=== PATIENT | female | born 1960 | race African-American/Black ===

== ENCOUNTER 2019-02-21 22:16 | Emergency (ER) | payer BC ==
[~2019-02-21 22:16] MED LIST: LIDOCAINE PATCH REMOVAL MC SCH
[2019-02-21 22:26] VITALS: TEMP 97.7; BMI 27.9
--- NOTE | 2019-02-21 22:51 | PDOC ---
History of Present Illness - General Chief Complaint: Pain, Acute Stated Complaint: RT SIDE PAIN Time Seen by Provider: 02/21/19 22:51 History Source: Patient Exam Limitations: No Limitations - History of Present Illness Initial Comments: 02/21/19 23:12 58 year old female with PMH HTN, HLD, DM presented to ED for right low back pain and right hip pain since Monday. Pt denied fall/trauma. Pt reported th pain is constnat, sharp, aggravated by movement, alleviated by rest, aggravated by laying on her right side and bending forward. Pt denied nausea, vomiting, diarrhea, abdominal pain, chest pain, shortness of breath, fever, chills, numbness, weakness. Pt denied AC use. Pt reported she was seen by her chiropractor today, but that worsened her symptoms. She stated she has been taking a muscle relaxer, ibuprofen 800 mg without relief of pain. Pt reported she had an IM anti-inflammatory shot yesterday from her pain management doctor. Past History - Past Medical History Allergies/Adverse Reactions: Allergies Allergy/AdvReac Type Severity Reaction Status Date / Time No Known Drug Allergies Allergy Verified 02/21/19 22:24 seasonal Allergy Mild Uncoded 02/21/19 22:24 Home Medications: Ambulatory Orders Valsartan/Hydrochlorothiazide [Valsartan-Hctz 320-25 mg Tab] 1 each PO DAILY Lidocaine 5% Patch [Lidoderm Patch -] 1 patch TP DAILY PRN #7 patch 02/22/19 Anemia: No Asthma: Yes Cancer: No Cardiac Disorders: No CVA: No COPD: No CHF: No Dementia: No Diabetes: No GI Disorders: No Disorders: No HTN: Yes Hypercholesterolemia: No Liver Disease: No Seizures: No Thyroid Disease: No - Surgical History Abdominal Surgery: Yes ([id number]) Appendectomy: Yes (AGE 17YRS) Cardiac Surgery: No Cholecystectomy: No GI Surgery: Yes (lap band, gastric sleeve) Lung Surgery: No Neurologic Surgery: No Orthopedic Surgery: Yes (LT KNEE ARTHROSCOPY 2008) - Immunization History Td Vaccination: Yes Immunization Up to Date: Yes - Suicide/Smoking/Psychosocial Hx Smoking History: Never smoked Have you smoked in the past 12 months: No Number of Cigarettes Smoked Daily: 2 'Breaking Loose' booklet given: 09/08/13 Hx Alcohol Use: No Drug/Substance Use Hx: No Substance Use Type: None Hx Substance Use Treatment: No Review of Systems - Review of Systems Able to Perform ROS?: Yes Comments:: 02/21/19 23:09 General: denied fever, chills, generalized weakness. HEENT: denied sore throat, rhinorrhea, ear pain. Heart: denied chest pain, palpitations, syncope, diaphoresis. Respiratory: denied shortness of breath, cough, sputum production, hemoptysis. Abdomen: denied abdominal pain, nausea, vomiting, diarrhea, constipation, blood in stool. : denied dysuria, increased urinary frequency, hematuria, urinary incontinence , flank pain. Back: admitted to back pain. Musculoskeletal: admitted to right hip pain. Neurological: denied headache, dizziness, numbness, tingling, weakness. Skin: denied rash, laceration, abrasion. *Physical Exam - Vital Signs Last Vital Signs Temp Pulse Resp BP Pulse Ox 97.7 F 65 20 112/76 100 02/21/19 22:24 02/21/19 22:24 02/21/19 22:24 02/21/19 22:24 02/21/19 22:24 - Physical Exam Comments: 02/21/19 23:09 Constitutional: Well-nourished, Well-developed, appearing stated age. HEENT: head is normocephalic, atraumatic. EOMI. PERRLA. Neck: supple. Full ROM. Heart: regular rhythm. no murmurs, rubs or gallops. Lungs: clear to auscultation bilaterally. no crackles, rhonchi or wheezing. no stridor. Back: no midline C/T/L spine tenderness to palpation. Hips: LE equal in length, no external rotation. mild tenderness to palpation of right hip. Abdomen: soft, nontender. normal bowel sounds. no rebound, guarding, masses. Extremities: peripheral pulses intact. no lower extremity edema. Neurological: CN 2-12 grossly intact. moves all four extremities. sensation intact and equal bilateral lower extremities. Psych: awake, alert, oriented x3. follows commands. answers questions appropriately. Skin: no rash to right hip/leg. Medical Decision Making - Medical Decision Making 02/21/19 23:10 58 year old female with above PMH presented to ED for right low back and right hip pain since Monday. Initial Vital Signs Temp Pulse Resp BP Pulse Ox 97.7 F 65 20 112/76 100 02/21/19 22:24 02/21/19 22:24 02/21/19 22:24 02/21/19 22:24 02/21/19 22:24 Afebrile. No tachycardia. No tachypnea. No hypoxia on room air. No hypertension. Labs ordered: none Imaging ordered: pelvis and right hip XR Medications ordered: robaxin 1500 mg PO once, toradol 60 mg IM once, lidoderm patch 02/22/19 01:12 Pelvis and right hip, lumbar spine XR my and Dr. De La Rosa's read: no acute fracture/dislocation. -Pending official report 02/22/19 01:47 Pt reported improvement of pain but would like to have oral pain medicine so she can get through the night. Medications ordered: Oxycodone 5 mg PO once Pt ambulated with cane unassisted. Pt discharged. discharge medications: Lidoderm patch x7 02/23/19 12:29 Follow up: Official hip/pelvis XR report: EXAM#: TYPE/EXAM: RESULT: [id number] RAD/HIP PELVIS-RIGHT Right hip and pelvis: Pain. An AP view of the pelvis and 2 views of the right hip revealed no sign of fracture or subluxation and no sign of blastic or lytic changes. The hips appear symmetrical. The SI joints are patent. There are left pelvic clips and arthritic spine changes. There is a nonspecific bowel pattern. If symptoms persist, further imaging and orthopedic consultation may be of help. Impression: No acute pelvis or right hip pathology. Reported By: Bryan Luz MD 02/22/19 0721 Official lumbar spine XR report: EXAM#: TYPE/EXAM: RESULT: [id number] RAD/SPINE- LUMBAR ONLY Lumbar spine: Low back pain. 3 views lumbar spine to been submitted. The AP view shows arthritic changes, patent SI joints and left pelvic clips. The paraspinal soft tissues are unremarkable. Lateral and spot lateral views show normal lordosis with slight forward subluxation of L3 on L4 by several millimeters. There is narrowing of the L4-5 and L5-S1 intervertebral disc spaces. Blastic or lytic changes are not seen. There is no sign of fracture but there is some vertebral wedging. There are aortic and iliac vascular calcifications with retained stool. If symptoms persist, further imaging and orthopedic consultation may be of help. Reported By: Bryan Luz MD 02/22/19 0723 *DC/Admit/Observation/Transfer Diagnosis at time of Disposition: Hip pain - Discharge Dispostion Disposition: HOME Condition at time of disposition: Improved Decision to Admit order: No - Prescriptions Prescriptions: Lidocaine 5% Patch [Lidoderm Patch -] 1 patch TP DAILY PRN #7 patch PRN Reason: Pain - Referrals Referrals: Terrell Epstein [Primary Care Provider] - Elmer Ochoa MD [Staff Physician] - Lloyd Silverman MD [Staff Physician] - Philipp Gonzalez DO [Staff Physician] - Alvin Rosen DO [Staff Physician] - - Patient Instructions Additional Instructions: You were seen today for hip pain. Your X-ray was normal - you do not have a fracture or broken bones. I have sent a prescription to your pharmacy for Lidoderm Patches - if they are too expensive buy them over the counter, buy the 5%. Use as advised on label. Take Tylenol 1000 mg every 6-8 hours as needed for pain. Buy over the counter. Follow up with an Orthopedic Doctor within 3 days. Your care is not complete until you follow up. I have provided you with multiple referrals should you need them. Follow up with your primary care doctor within 3 days. Your care is not complete until you follow up. Return to the Emergency Department for increasing pain, numbness, weakness, tingling, inability to walk or any other new, worsening or concerning symptoms. - Post Discharge Activity Forms/Work/School Notes: Back to Work
[2019-02-21] MEDS ORDERED: KETOROLAC TROMETHAMINE 60 MG/2 ML VIAL IM ONE (23:07)
[2019-02-21] MEDS ORDERED: LIDOCAINE 5% TOPICAL PATCH TP ONE (23:08)
--- NOTE | 2019-02-21 23:27 | PDOC ---
Documentation entered by Micah Luna SCRIBE, acting as scribe for Jacqueline De La Rosa DO. Jacqueline De La Rosa DO: This documentation has been prepared by the Jeremy marinelli Daniel, SCRIBE, under my direction and personally reviewed by me in its entirety. I confirm that the documentation accurately reflects all work, treatment, procedures, and medical decision making performed by me. Attending Attestation - Resident Resident Name: Angelina Felipe - ED Attending Attestation I have performed the following: I have examined & evaluated the patient, The case was reviewed & discussed with the resident, I agree w/resident's findings & plan, Exceptions are as noted - HPI HPI: 02/21/19 23:08 The patient is a 58 year old female with a past medical history of HTN and HLD here today for evaluation of right lower back pain. The patient reports that she developed right sided lower back on monday (02/18/19). She reports seeing taking ibuprofen, percocet, and a muscle relaxant which provided minimal relief. She states that she went to her pain management doctor's associate and receiving an anti inflammatory injection. She also notes going to a chiropractor , having a back readjustment, and having worsening pain since. Patient denies headache, lightheadedness. Denies fever, chills. Denies chest pain, shortness of breath. Denies nausea, vomiting, diarrhea, abdominal pain. Allergies: NKDA PCP: Dr. Epstein Pain Management: Dr. mSith Neurologist: Elmer Dunne - Physicial Exam PE: 02/21/19 23:25 Constitutional: Awake, alert, oriented. No acute distress. Head: Normocephalic. Atraumatic Eyes: PERRL. EOMI. Conjunctivae are not pale. ENT: Mucous membranes are moist and intact. Posterior pharynx without exudates or erythema. Uvula midline. Neck: Supple. Full ROM. No lymphadenopathy. Cardiovascular: Regular rate. Regular rhythm. S1, S2 regular. Distal pulses are 2+ and symmetric. Pulmonary/Chest: No evidence of respiratory distress. Clear to auscultation bilaterally No wheezing, rales or rhonchi. Abdominal: Soft and non-distended. There is no tenderness. No rebound, guarding or rigidity. No organomegaly. No palpable masses. Good bowel sounds. Back: No CVA tenderness. No C, T, or L spine tenderness, deformity, or step off. Musculoskeletal: +point tenderness over right mid buttock. Able to lift right leg to 20 degrees with active and passive motion before pain develops. No edema. No cyanosis. No clubbing. No calf tenderness. Radial/pedal pulses are intact and 2+ bilaterally Skin: Skin is warm and dry. No petechiae. No purpura. Neurological: Alert and oriented to person, place, and time. Cranial nerves II -XII are grossly intact. Normal speech. Strength is grossly symmetric. No sensory deficits. Psychiatric: Good eye contact. Normal interaction, affect and behavior. - Medical Decision Making 02/21/19 23:20 I, Dr. Jacqueline De La Rosa, DO, attest that this document has been prepared under my direction and personally reviewed by me in its entirety. I further attest, that it accurately reflects all work, treatment, procedures and medical decision -making performed by me. 02/21/19 23:20 58yo female with R buttock pain -sees pain management for the pain, had a steroid injection to the buttock yesterday -still had pain today so she went to a chiropractor for eval and had adjustments done on her back -patient still had pain- took a half a percocet and a muscle relaxer today with minimal relief -no weakness, pain with ROM of the RLE -sensation and muscle strength intact +straight leg raise to 20degrees on RLE -will obtain xrays given manipulation today -will give meds for pain - muscle spasm -will monitor and reassess -pt has an upcoming appt with dr. dunne for her nerve pain in her feet 02/22/19 01:10 no acute findings on xray 02/22/19 01:31 pt feels better, stable for dc to home
[2019-02-22] MEDS ORDERED: LIDOCAINE 5% TOPICAL PATCH ONE (00:03)
[2019-02-22] MEDS ORDERED: KETOROLAC TROMETHAMINE 60 MG/2 ML VIAL ONE (00:03)
[2019-02-22] MEDS ORDERED: METHOCARBAMOL 500 MG TABLET ONE (00:03)
[2019-02-22] MEDS ORDERED: METHOCARBAMOL 750 MG TABLET PO ONE ×2 (01:04→23:07)
[2019-02-22] MEDS ORDERED: oxyCODONE HCL 5 MG TABLET PO ONE (01:41)
[2019-02-22] MEDS ORDERED: oxyCODONE HCL 5 MG TABLET ONE (01:44)
[2019-02-22 01:52] VITALS: BP 110/72; PULSE 66
== END 2019-02-22 01:51 | disposition home or self-care (01) ==
LOC: JER 22:16
PROC: 3E0233Z Introduction of Anti-inflammatory into Muscle, Percutaneous Approach (ICD-10-PCS; principal; 2019-02-21)
DX: M25.511 Pain in right shoulder (principal); I10 Essential (primary) hypertension; E78.5 Hyperlipidemia, unspecified
CPT/HCPCS: 72100-TC-FY; 73523-TC-FY; 99282-25

== ENCOUNTER 2019-08-26 07:03 | Emergency (ER) | payer BC ==
[2019-08-26 07:34] VITALS: TEMP 97.6; BMI 27.2
[2019-08-26] MEDS ORDERED: ACETAMINOPHEN 1000 MG/100 ML VIAL (NON FORMULARY) IVPB ONE (07:55)
[2019-08-26] MEDS ORDERED: SODIUM CHLORIDE 1,000 ML IV STA (07:55)
[2019-08-26] MEDS ORDERED: PANTOPRAZOLE SODIUM 40 MG VIAL IVPB ONE (07:55)
[2019-08-26] MEDS ORDERED: ONDANSETRON 4 MG/2 ML VIAL IVPUSH ONE (07:57)
[2019-08-26] MEDS ORDERED: PANTOPRAZOLE SODIUM 40 MG/100 ML BAG IVPB ONE (08:16)
[2019-08-26] MEDS ORDERED: ONDANSETRON 4 MG/2 ML VIAL ONE (08:16)
[2019-08-26] MEDS ORDERED: ACETAMINOPHEN INJECTION 100 ML IVPB ONE (08:16)
--- NOTE | 2019-08-26 08:34 | PDOC ---
History of Present Illness - General Chief Complaint: Pain, Acute Stated Complaint: ABD PAIN Time Seen by Provider: 08/26/19 07:50 - History of Present Illness Initial Comments: 08/26/19 08:29 59 yo F PMH HTN, gastric band placed and then removed with current vertical sleeve, presenting with RUQ abdominal pain. Patient states that she had diarrhea all night and took Imodium. She then began to have acute RUQ pain at 0500, 10/10, sharp, associated with nausea and one episode of vomiting. Took Gas X without relief. Reports that she has never had these symptoms before. Specifically denies CP, SOB, constipation, [place], F/C, recent travel, recent illness. Endorses N/V and RUQ abdominal pain. Past History - Past Medical History Allergies/Adverse Reactions: Allergies Allergy/AdvReac Type Severity Reaction Status Date / Time No Known Drug Allergies Allergy Verified 02/21/19 22:24 seasonal Allergy Mild Uncoded 02/21/19 22:24 Home Medications: Ambulatory Orders Valsartan/Hydrochlorothiazide [Valsartan-Hctz 320-25 mg Tab] 1 each PO DAILY Lidocaine 5% Patch [Lidoderm Patch -] 1 patch TP DAILY PRN #7 patch 02/22/19 Anemia: No Asthma: Yes Cancer: No Cardiac Disorders: No CVA: No COPD: No CHF: No Dementia: No Diabetes: No GI Disorders: No Disorders: No HTN: Yes Hypercholesterolemia: No Liver Disease: No Seizures: No Thyroid Disease: No - Surgical History Abdominal Surgery: Yes ([id number]) Appendectomy: Yes (AGE 17YRS) Cardiac Surgery: No Cholecystectomy: No GI Surgery: Yes (lap band, gastric sleeve) Lung Surgery: No Neurologic Surgery: No Orthopedic Surgery: Yes (LT KNEE ARTHROSCOPY 2008) - Immunization History Td Vaccination: Yes Immunization Up to Date: Yes - Psycho Social/Smoking Cessation Hx Smoking History: Never smoked Have you smoked in the past 12 months: No Number of Cigarettes Smoked Daily: 2 'Breaking Loose' booklet given: 09/08/13 Hx Alcohol Use: Yes Drug/Substance Use Hx: No Substance Use Type: None Hx Substance Use Treatment: No Review of Systems - Review of Systems Comments:: 08/26/19 08:32 GENERAL/CONSTITUTIONAL: No fever or chills. No weakness. HEAD, EYES, EARS, NOSE AND THROAT: No change in vision. No ear pain or discharge. No sore throat. CARDIOVASCULAR: No chest pain or shortness of breath. RESPIRATORY: No cough, wheezing, or hemoptysis. GASTROINTESTINAL: Significant nausea with vomiting. Diarrhea overnight. No constipation. GENITOURINARY: No dysuria, frequency, or change in urination. MUSCULOSKELETAL: No joint or muscle swelling or pain. No neck or back pain. SKIN: No rash NEUROLOGIC: No headache, vertigo, loss of consciousness, or change in strength/ sensation. ENDOCRINE: No increased thirst. No abnormal weight change. HEMATOLOGIC/LYMPHATIC: No anemia, easy bleeding, or history of blood clots. ALLERGIC/IMMUNOLOGIC: No hives or skin allergy *Physical Exam - Vital Signs Last Vital Signs Temp Pulse Resp BP Pulse Ox 97.6 F 78 10 94/61 100 08/26/19 07:29 08/26/19 07:53 08/26/19 07:53 08/26/19 07:53 08/26/19 07:53 - Physical Exam 08/26/19 08:34 Gen: in distress, holding emesis bag with bilious vomit Neuro: AAOX4, CN II-XII intact, FTN intact, EOMI, PERRLA, 5/5 strength, SILT HEENT: atraumatic, normocephalic, dry mucous membranes Neck: trachea midline, supple CV: regular rate, regular rhythm, no murmurs, rubs, or gallops Pulm: CTA b/l, no wheezing Abd: soft, non-distended, RUQ tenderness, positive Zuniga's MSK: full ROM, intact pulses Extr: no edema, no deformities Skin: warm, dry ED Treatment Course - LABORATORY CBC & Chemistry Diagram: 08/26/19 08:00 08/26/19 08:00 - RADIOLOGY Radiology Studies Ordered: Category Date Time Status CXRPORT [CHEST X-RAY PORTABLE*] [RAD] Stat Radiology 08/26/19 07:58 Ordered - Medications Given in the ED: ED Medications Discontinued Medications Generic Name Dose Route Start Last Admin Trade Name Freq PRN Reason Stop Dose Admin Acetaminophen 1,000 mg 08/26/19 07:55 08/26/19 08:24 Ofirmev Injection - IVPB 08/26/19 07:56 1,000 mg ONCE ONE Administration Ondansetron HCl 4 mg 08/26/19 07:57 08/26/19 08:25 Zofran Injection IVPUSH 08/26/19 07:58 4 mg ONCE ONE Administration Pantoprazole Sodium 40 mg 08/26/19 07:55 08/26/19 08:25 Protonix Iv IVPB 08/26/19 07:56 40 mg ONCE ONE Administration Medical Decision Making - Medical Decision Making 08/26/19 08:29 Concern for cholecystitis v pancreatitis v choledocholethiasis. - CBC, CMP, lipase - EKG, CXR - RUQ US - Ofirmev, Zofran, Pepcid. 08/26/19 09:29 T bili 1.5, Lipase 703. Patient reassessed, feeling better, non-tender. Will get RUQ US. 08/26/19 10:14 EKG normal sinus at 64 bpm. 08/26/19 12:42 RUQ US without pathology. Discharge - Discharge Information Problems reviewed: Yes Clinical Impression/Diagnosis: Nausea and vomiting, Elevated lipase Condition: Improved Disposition: HOME - Follow up/Referral Referrals: James Farr MD [Staff Physician] - - Patient Discharge Instructions Patient Printed Discharge Instructions: DI for Vomiting -- Adult Additional Instructions: You were seen with vomiting and right upper abdominal pain. This improved with medication. However, your labs did show an elevated lipase. This can be a sign of issues with your pancreas. Your imaging did not show any acute issues. Please follow up with your GI doctor Dr. Farr for your appointment tomorrow at 1400. Also follow up with your primary care doctor within one week. Return to the ED if you develop worsening symptoms. - Post Discharge Activity
[2019-08-26 08:44] LABS: BASO % 0.2 % (0-2.0); EOS % 4.6 % (0-4.5); HEMATOCRIT 44.4 % (32.4-45.2); HEMOGLOBIN 14.5 GM/dL (10.7-15.3); MCH 30.1 pg (25.7-33.7); MCHC 32.6 g/dl (32.0-36.0); MEAN CELL VOLUME 92.2 fl (80-96); MEAN PLT VOLUME 9.6 fl (7.5-11.1); MONO % 6.4 % (3.8-10.2); NEUT % 82.8 % (42.8-82.8); PLATELET COUNT 167 K/MM3 (134-434); RBC 4.81 M/mm3 (3.60-5.2); RDW 14.8 % (11.6-15.6)
[2019-08-26] MEDS ORDERED: morphine CARPU-JECT 4 MG/1 ML DISP.SYRIN IVPUSH ONE (08:46)
[2019-08-26 09:04] LABS: ALBUMIN 3.3 g/dl (3.4-5.0); ALK PHOS 73 U/L (45-117); ANION GAP 5 MMOL/L (8-16); BILIRUBIN,TOTAL 1.5 mg/dL (0.2-1); CALCIUM 8.4 mg/dL (8.5-10.1); CHLORIDE 111 mmol/L (98-107); CO2 26 mmol/L (21-32); CREATININE 0.7 mg/dL (0.55-1.3); GLUCOSE,RANDOM 116 mg/dL (74-106); POTASSIUM 3.8 mmol/L (3.5-5.1); SGOT/AST 19 U/L (15-37); SGPT/ALT 27 U/L (13-61); SODIUM 142 mmol/L (136-145)
[2019-08-26 10:09] VITALS: BP 97/65; PULSE 64
[2019-08-26 10:43] LABS: URINE APPEARANCE CLEAR; URINE BILIRUBIN NEGATIVE (NEGATIVE); URINE COLOR YELLOW; URINE GLUCOSE (UA) NEGATIVE (NEGATIVE); URINE KETONE TRACE (NEGATIVE); URINE LEUK ESTERASE NEGATIVE (NEGATIVE); URINE NITRITE NEGATIVE (NEGATIVE); URINE PROTEIN NEGATIVE (NEGATIVE); URINE UROBILINOGEN 0.2 mg/dL (0.2-1.0)
--- NOTE | 2019-08-26 11:00 | EKG ---
Test Reason : Blood Pressure : / mmHG Vent. Rate : 064 BPM Atrial Rate : 064 BPM P-R Int : 128 ms QRS Dur : 082 ms QT Int : 388 ms P-R-T Axes : 015 025 009 degrees QTc Int : 400 ms NORMAL SINUS RHYTHM NONSPECIFIC T WAVE ABNORMALITY ABNORMAL ECG WHEN COMPARED WITH ECG OF 16-MAY-2016 08:28, NO SIGNIFICANT CHANGE WAS FOUND Confirmed by SHANNAN LARIOS MD ([id number]) on 08/26/2019 11:00:21 AM Referred By: Confirmed By:SHANNAN LARIOS MD
--- NOTE | 2019-08-26 11:46 | PDOC ---
Documentation entered by Jesus Manuel Rouse SCRIBE, acting as scribe for Ross Maldonado MD. Ross Maldonado MD: This documentation has been prepared by the Padma marinelli Xhesika, SCRIBE, under my direction and personally reviewed by me in its entirety. I confirm that the documentation accurately reflects all work, treatment, procedures, and medical decision making performed by me. Attending Attestation - Resident Resident Name: Tyler Montesinos - ED Attending Attestation I have performed the following: I have examined & evaluated the patient, The case was reviewed & discussed with the resident, I agree w/resident's findings & plan - HPI HPI: 08/26/19 09:30 The patient is a 59 year old female with a significant PMH of HTN and gastric band s/p resection, now with gastric sleeve, who presents to the emergency department for RUQ abdominal pain since 5am. Pt describes the pain as 10/10 in severity, sharp in nature, associated with nausea, one episode of bilious vomiting and several episodes of nonbloody diarrhea preceding the abdominal pain. Pt notes she has been feeling gassy and took Gas-X, with no improvement of symptoms. Pt reports never experiencing these symptoms before. Ate muscles last night, no other diet change. The patient denies chest pain, shortness of breath, headache and dizziness. Denies fever, chills, cough, and constipation. Denies dysuria, frequency, urgency and hematuria. Allergies: NKDA. seasonal allergies. PCP: Dr. Epstein - Physicial Exam PE: 08/26/19 11:44 Blood pressure normal 110 systolic, triage blood pressure noted. Heart rate normal, O2 sat normal Alert, lying in stretcher, no acute distress and well-appearing No jaundice or pallor, moist mucosa Heart is regular, lungs are clear Abdomen is soft/nondistended. There is tenderness with some guarding in the right upper quadrant, no CVA tenderness, no rebound. - Medical Decision Making 08/26/19 11:45 59-year-old female with history of gastric band status post removal, now status post gastric sleeve who presents with diarrhea throughout the night followed by onset of epigastric/right upper quadrant pain this morning with one episode of vomiting, exam localizes to the right upper quadrant. Hemodynamically stable here, triage blood pressure noted, patient likely vagaling after vomiting. Check labs, urinalysis Right upper quadrant ultrasound Pain control, nausea control, IV fluids Reassess 08/26/19 13:00 no leukocytosis, T bili 1.5 (d bili added), lipase 700, remaining LFTs normal. U/S normal. pt sxs remain improved/resolved, ? passed stone though CT without cholelithiasis. Presentation not consistent with SBO despite surgical history (+ diarrhea, tolerating PO, benign abd). discuss dispo plan with Dr. Farr, pt's GI 08/26/19 13:37 has f/u with Dr. Farr tomorrow 2pm, will f/u patient and results. agrees with plan. Heart Score/ECG Review #1 ECG reviewed & interpreted by me at: 07:44 General ECG Interpretation: Sinus Rhythm, Normal Rate (64), Normal Intervals ( qtc 400), No acute ischemic changes (nonspecific T wave flattening) #2 ECG reviewed & interpreted by me at: 12:06 General ECG Interpretation: Sinus Rhythm, Normal Rate (72), Normal Intervals ( qtc 442), No acute ischemic changes (nonspecific T wave flattening laterally) Compared to previous ECG there are: No significant change
[2019-08-26 13:31] LABS: BILIRUBIN,DIRECT 0.4 mg/dL (0.0-0.2)
--- NOTE | 2019-08-27 10:20 | EKG ---
Test Reason : Blood Pressure : / mmHG Vent. Rate : 072 BPM Atrial Rate : 072 BPM P-R Int : 150 ms QRS Dur : 068 ms QT Int : 404 ms P-R-T Axes : 045 018 -03 degrees QTc Int : 442 ms NORMAL SINUS RHYTHM NONSPECIFIC T WAVE ABNORMALITY ABNORMAL ECG WHEN COMPARED WITH ECG OF 26-AUG-2019 07:44, NO SIGNIFICANT CHANGE WAS FOUND Confirmed by MD Yamil, Sanju ([id number]) on 08/27/2019 10:19:33 AM Referred By: Confirmed By:Sanju Lobo MD
== END 2019-08-26 13:54 | disposition home or self-care (01) ==
LOC: JER 07:03
PROC: 3E033NZ Introduction of Analgesics, Hypnotics, Sedatives into Peripheral Vein, Percutaneous Approach (ICD-10-PCS; principal; 2019-08-26)
PROC: 3E033GC Introduction of Other Therapeutic Substance into Peripheral Vein, Percutaneous Approach (ICD-10-PCS; 2019-08-26)
PROC: 3E033GC Introduction of Other Therapeutic Substance into Peripheral Vein, Percutaneous Approach (ICD-10-PCS; 2019-08-26)
DX: R74.8 Abnormal levels of other serum enzymes (principal)
CPT/HCPCS: 36415; 71045-TC-FY; 76705-TC; 80053; 81003; 82248; 82550; 83690; 84484; 85025; 87086; 93005; 93010; 99284-25; J0131; J7030

== ENCOUNTER 2020-05-26 22:39 | Emergency (ER) | payer BC ==
[2020-05-26 22:49] VITALS: BP 99/68; PULSE 94; TEMP 98; BMI 27.1
--- OUTSIDE RECORDS SUMMARY | 2020-05-26 22:56 | XMS ---
:1960 Author Organization [facility] Support Name Relationship Address Phone [facility] Unavailable [address] [place] [address] [facility] Unavailable [address] [place] [address] HERRREA [employer]ATKINS MOTHER [address] [place] [address] Re-disclosure Warning The records that you are about to access may contain information from federally- assisted alcohol or drug abuse programs. If such information is present, then the following federally mandated warning applies: This information has been disclosed to you from records protected by federal confidentiality rules (42 CFR part 2). The federal rules prohibit you from making any further disclosure of this information unless further disclosure is expressly permitted by the written consent of the person to whom it pertains or as otherwise permitted by 42 CFR part 2. A general authorization for the release of medical or other information is NOT sufficient for this purpose. The Federal rules restrict any use of the information to criminally investigate or prosecute any alcohol or drug abuse patient.The records that you are about to access may contain highly sensitive health information, the redisclosure of which is protected by Article 27-F of the [facility] Public Health law. If you continue you may haveaccess to information: Regarding HIV / AIDS; Provided by facilities licensed or operated by the [facility] Office of Mental Health; or Provided by the [facility] Office for People With Developmental Disabilities. If such information is present, then the following [facility] mandated warning applies: This information has been disclosed to you from confidential records which are protected by state law. State law prohibits you from making any further disclosure of this information without the specific written consent of the person to whom it pertains, or as otherwise permitted by law. Any unauthorized further disclosure in violation of state law may result in a fine or prison sentence or both. A general authorization for the release of medical or other information is NOT sufficient authorization for further disclosure. Insurance Providers Payer name Policy type Policy ID Covered Covered republican's Policy P alaina / Coverage republican ID relationship to [place] [employer] type [place] OF [id number] SP [id number] [id number] [phone] [place] OUT OF [id number] SP [id number] [place] [id number]
--- NOTE | 2020-05-26 22:57 | PDOC ---
History of Present Illness - General Chief Complaint: Pain Stated Complaint: ABD PAIN Time Seen by Provider: 05/26/20 22:57 History Source: Patient - History of Present Illness Initial Comments: 05/26/20 23:46 60-year-old female complaining of urinary frequency and dysuria since this morning. Denies flank pain, fever/chills, nausea, abdominal pain. Patient reports that she has a history of UTI. 05/26/20 23:47 Past medical history of hypertension Past History - Medical History Allergies/Adverse Reactions: Allergies Allergy/AdvReac Type Severity Reaction Status Date / Time No Known Drug Allergies Allergy Verified 02/21/19 22:24 seasonal Allergy Mild Uncoded 02/21/19 22:24 Home Medications: Ambulatory Orders Valsartan/Hydrochlorothiazide [Valsartan-Hctz 320-25 mg Tab] 1 each PO DAILY 01/08/16 Lidocaine 5% Patch [Lidoderm Patch -] 1 patch TP DAILY PRN #7 patch 02/22/19 Cefuroxime Axetil [Cefuroxime] 500 mg PO BID #20 tablet 05/26/20 Phenazopyridine HCl [Pyridium] 100 mg PO TID #6 tablet 05/26/20 Anemia: No Asthma: Yes Cancer: No Cardiac Disorders: No CVA: No COPD: No CHF: No Dementia: No Diabetes: No GI Disorders: No Disorders: No HTN: Yes Hypercholesterolemia: No Liver Disease: No Seizures: No Thyroid Disease: No - Surgical History Abdominal Surgery: Yes ([id number]) Appendectomy: Yes (AGE 17YRS) Cardiac Surgery: No Cholecystectomy: No GI Surgery: Yes (lap band, gastric sleeve) Lung Surgery: No Neurologic Surgery: No Orthopedic Surgery: Yes (LT KNEE ARTHROSCOPY 2008) - Immunization History Td Vaccination: Yes Immunization Up to Date: Yes - Psycho-Social/Smoking History Smoking History: Never smoked Have you smoked in the past 12 months: No Number of Cigarettes Smoked Daily: 2 'Breaking Loose' booklet given: 09/08/13 - Substance Abuse Hx (Audit-C & DAST Scrn) How often the patient has a drink containing alcohol: Monthly or less Score: In Men: 4 or > Positive; In Women: 3 or > Positive: 1 Screen Result (Pos requires Nsg. Audit-10AR): Negative *Physical Exam - Vital Signs Last Vital Signs Temp Pulse Resp BP Pulse Ox 98.0 F 94 H 20 99/68 99 05/26/20 22:45 05/26/20 22:45 05/26/20 22:45 05/26/20 22:45 05/26/20 22:45 - Physical Exam General Appearance: Yes: Appropriately Dressed Respiratory/Chest: positive: Lungs Clear, Normal Breath Sounds Gastrointestinal/Abdominal: positive: Normal Bowel Sounds, Soft. negative: Tender Musculoskeletal: positive: Normal Inspection. negative: CVA Tenderness Extremity: positive: Normal Capillary Refill, Normal Inspection, Normal Range of Motion Integumentary: positive: Normal Color, Dry, Warm Neurologic: positive: Fully Oriented, Alert ED Progress Note - Progress Note Progress Note: 05/27/20 05:46 A: UTI P: ua Urine culture cephalosporin Discharge - Discharge Information Problems reviewed: Yes Clinical Impression/Diagnosis: UTI (urinary tract infection) Qualifiers: Urinary tract infection type: acute cystitis Hematuria presence: without hematuria Qualified Code(s): N30.00 - Acute cystitis without hematuria Condition: Stable Disposition: HOME - Additional Discharge Information Prescriptions: Cefuroxime Axetil [Cefuroxime] 500 mg PO BID #20 tablet Phenazopyridine HCl [Pyridium] 100 mg PO TID #6 tablet - Follow up/Referral Referrals: Terrell Epstein [Primary Care Provider] - - Patient Discharge Instructions Patient Printed Discharge Instructions: DI for Urinary Tract Infection (UTI) Additional Instructions: Drink plenty of fluids Take ibuprofen every 6 hours as needed for pain You may take Pyridium for the burning of urination. it can turn year her urine orange and can make you sweat orange Take cefuroxime as prescribed Follow-up with your primary care doctor as soon as possible. You need to repeat urine test once your antibiotic is completed. We will call you if you're antibiotic needs to be changed. - Post Discharge Activity Work/Back to School Note: Back to Work
[2020-05-26 23:44] LABS: EPI CELLS 11 /uL (0-25.1); HYALINE CASTS 2 /uL (0-3.1); URINE APPEARANCE TURBID; URINE BACTERIA >9,000 /uL (0-1359); URINE BILIRUBIN NEGATIVE (NEGATIVE); URINE COLOR YELLOW; URINE GLUCOSE (UA) 2+ (NEGATIVE); URINE KETONE NEGATIVE (NEGATIVE); URINE LEUK ESTERASE 3+ (NEGATIVE); URINE NITRITE POSITIVE (NEGATIVE); URINE PROTEIN 3+ (NEGATIVE); URINE RBC 463 /uL (0-23.9); URINE WBC 8374 /uL (0-25.8)
[2020-05-26] MEDS ORDERED: CEFUROXIME AXETIL 500 MG TABLET PO ONE (23:47)
[2020-05-26] MEDS ORDERED: PHENAZOPYRIDINE HCL 100 MG TABLET (FP) PO ONE (23:49)
[2020-05-26] MEDS ORDERED: PHENAZOPYRIDINE HCL 100 MG TABLET (FP) ONE (23:52)
[2020-05-27] MEDS ORDERED: CEPHALEXIN MONOHYDRATE 500 MG CAPSULE (UD) PO ONE (00:01)
[2020-05-27] MEDS ORDERED: CEPHALEXIN MONOHYDRATE 500 MG CAPSULE (UD) ONE (00:01)
== END 2020-05-27 00:09 | disposition home or self-care (01) ==
LOC: JER 22:39
DX: N30.00 Acute cystitis without hematuria (principal)
CPT/HCPCS: 81003; 87086; 87186; 99283-25

== ENCOUNTER 2020-09-16 08:12 | Emergency (ER) | payer BC ==
[2020-09-16 08:26] VITALS: BP 105/47; PULSE 66; BMI 26.4
[2020-09-16] MEDS ORDERED: ACETAMINOPHEN 325 MG TABLET (FP) PO ONE (10:20)
[2020-09-16] MEDS ORDERED: ACETAMINOPHEN 325 MG TABLET (FP) ONE (10:21)
== END 2020-09-16 10:22 | disposition home or self-care (01) ==
LOC: JER 08:12
DX: M54.2 Cervicalgia (principal); S09.90XA Unspecified injury of head, initial encounter
CPT/HCPCS: 70450-TC; 72125-TC; 99284-25

== ENCOUNTER 2020-10-02 08:56 | Emergency (ER) | payer OTHER, BC ==
[2020-10-02] MEDS ORDERED: IBUPROFEN 600 MG TABLET (FP) PO ONE ×2 (09:07→09:16)
[2020-10-02 09:14] VITALS: BP 102/68; PULSE 63; TEMP 98.1; BMI 26.4
== END 2020-10-02 14:09 | disposition home or self-care (01) ==
LOC: FER 08:56
DX: S09.90XA Unspecified injury of head, initial encounter (principal); R91.1 Solitary pulmonary nodule; W19.XXXA Unspecified fall, initial encounter
CPT/HCPCS: 70450-TC; 70486-TC; 72125-TC; 99285-25

== ENCOUNTER 2021-08-25 04:31 | Day surgery (SDC) | payer BC ==
[2021-08-19 13:36] VITALS: BMI 25.4
[2021-08-25] MEDS ORDERED: oxyCODONE HCL 5 MG TABLET PO PRN (12:33)
[2021-08-25] MEDS ORDERED: PROMETHAZINE HCL 25 MG/1 ML VIAL IVPUSH PRN (12:33)
[2021-08-25] MEDS ORDERED: ONDANSETRON 4 MG/2 ML VIAL IVPUSH PRN (12:33)
[2021-08-25] MEDS ORDERED: LACTATED RINGERS SOLUTION 1,000 ML IV SCH (12:45)
[2021-08-25] MEDS ORDERED: MIDAZOLAM HCL 2 MG/2 ML SINGLE DOSE VIAL ONE (12:54)
[2021-08-25] MEDS ORDERED: PROPOFOL 20 ML ONE (12:54)
[2021-08-25] MEDS ORDERED: ceFAZolin SODIUM 1 GM VIAL IVPB ONE (13:12)
[2021-08-25] MEDS ORDERED: DEXAMETHASONE SOD PHOSPHATE 4 MG/1 ML VIAL ONE (13:15)
[2021-08-25] MEDS ORDERED: KETOROLAC TROMETHAMINE 30 MG/1 ML VIAL ONE (13:15)
[2021-08-25] MEDS ORDERED: ceFAZolin SODIUM 1 GM VIAL ONE (13:15)
[2021-08-25] MEDS ORDERED: ACETAMINOPHEN 325 MG TABLET (FP) PO PRN (14:52)
[2021-08-25] MEDS ORDERED: IBUPROFEN 400 MG TABLET (FP) PO PRN (14:52)
[2021-08-25 16:09] VITALS: BP 128/78; PULSE 84; TEMP 97.8
== END 2021-08-25 15:45 | disposition home or self-care (01) ==
LOC: JASU-SURG 04:31
PROVIDERS: ATTEND Obstetrics & Gynecology
PROC: 0UDB8ZX Extraction of Endometrium, Via Natural or Artificial Opening Endoscopic, Diagnostic (ICD-10-PCS; principal; 2021-08-25 13:00)
DX: N95.0 Postmenopausal bleeding (principal)
CPT/HCPCS: 86850; 86900; 86901; 88305-TC; 94760

== ENCOUNTER 2022-02-18 07:29 | Day surgery (SDC) | payer OTHER, BC ==
[2022-02-10 12:47] VITALS: BMI 24.3
[2022-02-18] MEDS ORDERED: MIDAZOLAM HCL 2 MG/2 ML SINGLE DOSE VIAL ONE ×2 (08:29)
[2022-02-18] MEDS ORDERED: ROPIVACAINE HCL 0.5% 30ML VIAL ONE (08:32)
[2022-02-18] MEDS ORDERED: PROPOFOL 20 ML ONE (09:46)
[2022-02-18] MEDS ORDERED: KETOROLAC TROMETHAMINE 30 MG/1 ML VIAL ONE (10:05)
[2022-02-18] MEDS ORDERED: DEXAMETHASONE SOD PHOSPHATE 4 MG/1 ML VIAL ONE (10:05)
[2022-02-18] MEDS ORDERED: ONDANSETRON 4 MG/2 ML VIAL ONE (10:05)
[2022-02-18] MEDS ORDERED: ONDANSETRON 4 MG/2 ML VIAL IVPUSH PRN (10:21)
[2022-02-18] MEDS ORDERED: PROMETHAZINE HCL 25 MG/1 ML VIAL IVPUSH PRN (10:21)
[2022-02-18 10:30] VITALS: TEMP 98.6
[2022-02-18] MEDS ORDERED: LACTATED RINGERS SOLUTION 1,000 ML IV SCH (10:30)
[2022-02-18 12:20] VITALS: BP 119/77; PULSE 61
== END 2022-02-18 11:45 | disposition home or self-care (01) ==
LOC: FASU 07:29
PROVIDERS: ATTEND Orthopaedic Surgery
PROC: 0RHJ48Z Insertion of Spacer into Right Shoulder Joint, Percutaneous Endoscopic Approach (ICD-10-PCS; 2022-02-18)
PROC: 0RBJ4ZZ Excision of Right Shoulder Joint, Percutaneous Endoscopic Approach (ICD-10-PCS; principal; 2022-02-18 09:39)
DX: M75.01 Adhesive capsulitis of right shoulder (principal); M75.41 Impingement syndrome of right shoulder; S43.431A Superior glenoid labrum lesion of right shoulder, initial encounter; X58.XXXA Exposure to other specified factors, initial encounter; Y93.9 Activity, unspecified; Y92.9 Unspecified place or not applicable
CPT/HCPCS: 29823; C1776; C9781; 94760

== ENCOUNTER 2022-02-26 20:26 | Emergency (ER) | payer OTHER, BC ==
[2022-02-26] MEDS ORDERED: KETOROLAC TROMETHAMINE 60 MG/2 ML VIAL IM ONE (20:51)
[2022-02-26] MEDS ORDERED: oxyCODONE HCL 10 MG SUSTAINED ACTING TABLET PO ONE (20:51)
[2022-02-26 20:54] VITALS: BP 133/46; PULSE 76; TEMP 97.9; BMI 24.2
[2022-02-26] MEDS ORDERED: oxyCODONE HCL 5 MG TABLET ONE (20:55)
[2022-02-26] MEDS ORDERED: KETOROLAC TROMETHAMINE 60 MG/2 ML VIAL ONE (20:55)
== END 2022-02-26 21:25 | disposition home or self-care (01) ==
LOC: FER 20:26
PROC: 3E0233Z Introduction of Anti-inflammatory into Muscle, Percutaneous Approach (ICD-10-PCS; principal; 2022-02-26)
DX: M25.511 Pain in right shoulder (principal); G89.29 Other chronic pain
CPT/HCPCS: 99284-25

== ENCOUNTER 2022-10-12 12:09 | Emergency (ER) | payer BC ==
[2022-10-12 12:15] VITALS: RESP 20; BMI 25.3
[2022-10-12] MEDS ORDERED: ACETAMINOPHEN 500 MG TABLET (FP) PO ONE (15:24)
[2022-10-12] MEDS ORDERED: ACETAMINOPHEN 325 MG TABLET (FP) ONE (15:38)
[2022-10-12 16:48] LABS: BASO % 0.5 % (0-2.0); HEMATOCRIT 39.5 % (32.4-45.2); HEMOGLOBIN 13.1 GM/dL (10.7-15.3); LYMPH % 43.9 % (8-40); MCH 30.4 pg (25.7-33.7); MCHC 33.2 g/dl (32.0-36.0); MEAN CELL VOLUME 91.7 fl (80-96); MEAN PLT VOLUME 9.1 fl (7.5-11.1); MONO % 8.3 % (3.8-10.2); NEUT % 43.3 % (42.8-82.8); PLATELET COUNT 207 10^3/uL (134-434); RBC 4.31 M/mm3 (3.60-5.2); RDW 14.8 % (11.6-15.6); WHITE BLOOD COUNT 4.4 K/mm3 (4.0-10.0)
[2022-10-12 16:52] VITALS: BP 107/65; PULSE 62; TEMP 97.4
[2022-10-12 17:07] LABS: ALBUMIN 3.4 g/dl (3.4-5.0); BLOOD UREA NITROGEN 12.7 mg/dL (7-18); CALCIUM 8.5 mg/dL (8.5-10.1); MAGNESIUM 2.4 mg/dL (1.8-2.4)
[2022-10-12 17:11] LABS: CREATININE 0.7 mg/dL (0.55-1.3)
[2022-10-12 17:13] LABS: BILIRUBIN,TOTAL 0.4 mg/dL (0.2-1); TOT PROT 6.1 g/dl (6.4-8.2)
== END 2022-10-12 17:53 | disposition home or self-care (01) ==
LOC: JER 12:09
DX: R42 Dizziness and giddiness (principal)
CPT/HCPCS: 0241U-QW; 36415; 80053; 83735; 85025; 93005; 93010; 99284-25

== ENCOUNTER 2023-01-09 16:41 | Emergency (ER) | payer OTHER, BC ==
[2023-01-09 16:55] VITALS: BP 116/79; PULSE 60; RESP 20; TEMP 97.8; BMI 25.3
[2023-01-09] MEDS ORDERED: ACETAMINOPHEN 325 MG TABLET (FP) PO ONE (17:04)
[2023-01-09] MEDS ORDERED: ACETAMINOPHEN 325 MG TABLET (FP) ONE (17:12)
== END 2023-01-09 18:40 | disposition home or self-care (01) ==
LOC: FER 16:41
DX: M25.562 Pain in left knee (principal); S80.02XA Contusion of left knee, initial encounter; W22.8XXA Striking against or struck by other objects, initial encounter; Y92.219 Unspecified school as the place of occurrence of the external cause; Y99.0 Civilian activity done for income or pay
CPT/HCPCS: 73560-TC-LT-FY; 99283-25

== ENCOUNTER 2023-07-07 18:28 | Emergency (ER) | payer BC, OTHER ==
[2023-07-07 19:23] VITALS: BP 120/60; PULSE 58; RESP 17; TEMP 98.2; BMI 25.0
[2023-07-07] MEDS ORDERED: SUCRALFATE 1 GM TABLET (FP) PO ONE (20:14)
[2023-07-07] MEDS ORDERED: SIMETHICONE 80 MG TAB.CHEW (FP) PO ONE (20:15)
[2023-07-07] MEDS ORDERED: SUCRALFATE 1 GM/10 ML UNIT DOSE CUPS ONE ×2 (21:03→21:05)
[2023-07-07] MEDS ORDERED: SIMETHICONE 80 MG TAB.CHEW (FP) ONE ×2 (21:03→21:05)
== END 2023-07-07 22:30 | disposition home or self-care (01) ==
LOC: FER 18:28
DX: R11.2 Nausea with vomiting, unspecified (principal); R51.9 Headache, unspecified; R42 Dizziness and giddiness; K21.9 Gastro-esophageal reflux disease without esophagitis; K26.9 Duodenal ulcer, unspecified as acute or chronic, without hemorrhage or perforation; H61.23 Impacted cerumen, bilateral
CPT/HCPCS: 93005; 99283-25

== ENCOUNTER 2023-12-27 15:04 | Emergency (ER) | payer BC ==
[2023-12-27 15:20] VITALS: BP 120/73; PULSE 66; RESP 20; TEMP 98.5; BMI 24.8
[2023-12-27] MEDS ORDERED: METOCLOPRAMIDE HCL INJECTION 10 MG/2 ML VIAL ONE (16:29)
[2023-12-27] MEDS ORDERED: ACETAMINOPHEN INJECTION 100 ML IVPB ONE (16:30)
[2023-12-27] MEDS: ACETAMINOPHEN 1000 MG/100 ML BAG IVPB ONE (16:43)
[2023-12-27] MEDS: SODIUM CHLORIDE 0.9% 500 ML INFUS.BAG IV ONE (16:44)
[2023-12-27] MEDS: METOCLOPRAMIDE HCL INJECTION 10 MG/2 ML VIAL IVPUSH ONE (16:44)
== END 2023-12-27 17:33 | disposition home or self-care (01) ==
LOC: FER 15:04
PROC: 3E030NZ Introduction of Analgesics, Hypnotics, Sedatives into Peripheral Vein, Open Approach (ICD-10-PCS; principal; 2023-12-27)
PROC: 3E030GC Introduction of Other Therapeutic Substance into Peripheral Vein, Open Approach (ICD-10-PCS; 2023-12-27)
DX: G43.909 Migraine, unspecified, not intractable, without status migrainosus (principal)
CPT/HCPCS: 99284-25; J0131

== ENCOUNTER 2025-04-27 20:54 | Emergency (ER) | payer BC ==
[2025-04-27 21:09] VITALS: TEMP 97.9; BMI 26.4
[2025-04-27] MEDS ORDERED: FAMOTIDINE 20 MG/50 ML IVPB 20 MG/50 ML MG IVPB ONE (22:24)
[2025-04-27] MEDS ORDERED: ACETAMINOPHEN INJECTION 100 ML ONE (22:24)
[2025-04-27] MEDS ORDERED: MAG HYDROX/AL HYDROX/SIMETH 30 ML UNIT-DOSE CUP ONE (22:24)
[2025-04-27] MEDS ORDERED: ONDANSETRON 4 MG/2 ML VIAL ONE (22:24)
[2025-04-27 22:29] LABS: ABSOLUTE IMMATURE GRANULOCYTES 0.01 x10^3/uL (0.0-0.031); BASOPHILS # 0.04 x10^3/uL (0.01-0.08); EOSINOPHIL % 8.0 % (0.7-5.8); EOSINOPHILS # 0.57 x10^3/uL (0.04-0.36); MCHC 31.9 g/dl (32.2-35.5); MEAN CELL VOLUME 95.5 fl (79.4-94.8); MEAN PLT VOLUME 11.4 fl (9.4-12.3); MONOCYTE # 0.51 x10^3/uL (0.24-0.86); MONOCYTE % 7.2 % (4.7-12.5); RDW 12.1 % (12.4-16.4)
[2025-04-27] MEDS: ONDANSETRON 4 MG/2 ML VIAL IVPUSH ONE (22:35)
[2025-04-27] MEDS: ACETAMINOPHEN 1000 MG/100 ML BAG IVPB ONE (22:35)
[2025-04-27] MEDS: MAG HYDROX/AL HYDROX/SIMETH 30 ML UNIT-DOSE CUP PO ONE (22:35)
[2025-04-27] MEDS: FAMOTIDINE 20 MG/50 ML IVPB 20 MG/50 ML MG IVPB ONE (22:35)
[2025-04-27 22:53] LABS: GLUCOSE,RANDOM 95.0 mg/dL (74-106)
[2025-04-27 22:54] LABS: TOT PROT 6.7 g/dl (6.4-8.2)
[2025-04-27 22:55] LABS: CO2 27.0 mmol/L (21-32)
[2025-04-27 22:56] LABS: ALK PHOS 90.0 U/L (40-150)
[2025-04-27 22:59] LABS: CREATININE 0.76 mg/dL (0.55-1.3); SGOT/AST 51.0 U/L (5-34); SGPT/ALT 49.0 U/L (0-55)
[2025-04-27 23:21] LABS: HIV INTERPRETATION NEGATIVE (NEGATIVE)
[2025-04-27 23:22] LABS: HCV DIAGNOSTIC IN-HOUSE W/RFLX NON-REACTIVE (NONREACTIVE)
[2025-04-28 01:00] VITALS: BP 128/64; PULSE 60; RESP 16
[2025-04-28 01:14] LABS: URINE APPEARANCE CLEAR; URINE BILIRUBIN NEGATIVE (NEGATIVE); URINE COLOR YELLOW; URINE GLUCOSE (UA) NEGATIVE (NEGATIVE); URINE KETONE NEGATIVE (NEGATIVE); URINE LEUK ESTERASE NEGATIVE (NEGATIVE); URINE NITRITE NEGATIVE (NEGATIVE); URINE PROTEIN NEGATIVE (NEGATIVE); URINE UROBILINOGEN 1.0 mg/dL (0.2-1.0)
== END 2025-04-28 01:36 | disposition home or self-care (01) ==
LOC: JER 20:54
PROC: 3E033GC Introduction of Other Therapeutic Substance into Peripheral Vein, Percutaneous Approach (ICD-10-PCS; principal; 2025-04-27)
PROC: 3E033GC Introduction of Other Therapeutic Substance into Peripheral Vein, Percutaneous Approach (ICD-10-PCS; 2025-04-27)
PROC: 3E033NZ Introduction of Analgesics, Hypnotics, Sedatives into Peripheral Vein, Percutaneous Approach (ICD-10-PCS; 2025-04-27)
DX: R10.12 Left upper quadrant pain (principal); R30.0 Dysuria
CPT/HCPCS: 36415; 74177-TC; 76705-TC; 80053; 81003; 83605; 83690; 83735; 85025; 86803; 87086; 87389; 93005; 93010; 99285-25

== ENCOUNTER 2025-06-24 14:08 | Emergency (ER) | payer BC ==
[2025-06-24 14:21] VITALS: RESP 16; TEMP 97.4; BMI 28.5
[2025-06-24] MEDS: morphine CARPU-JECT 2 MG/1 ML DISP.SYRIN IVPUSH ONE (15:32)
[2025-06-24] MEDS ORDERED: MORPHINE SULFATE 2 MG/ML SYRINGE ONE (15:33)
[2025-06-24 15:40] LABS: ABSOLUTE IMMATURE GRANULOCYTES 0.03 x10^3/uL (0.0-0.031); BASOPHILS # 0.02 x10^3/uL (0.01-0.08); EOSINOPHIL % 4.4 % (0.7-5.8); EOSINOPHILS # 0.23 x10^3/uL (0.04-0.36); MCHC 31.9 g/dl (32.2-35.5); MEAN CELL VOLUME 94.5 fl (79.4-94.8); MEAN PLT VOLUME 11.3 fl (9.4-12.3); MONOCYTE # 0.39 x10^3/uL (0.24-0.86); MONOCYTE % 7.5 % (4.7-12.5); RDW 12.8 % (12.4-16.4)
[2025-06-24 15:42] LABS: URINE APPEARANCE CLEAR; URINE BILIRUBIN NEGATIVE (NEGATIVE); URINE COLOR YELLOW; URINE GLUCOSE (UA) NEGATIVE (NEGATIVE); URINE KETONE TRACE (NEGATIVE); URINE LEUK ESTERASE NEGATIVE (NEGATIVE); URINE NITRITE NEGATIVE (NEGATIVE); URINE PROTEIN NEGATIVE (NEGATIVE); URINE UROBILINOGEN 0.2 mg/dL (0.2-1.0)
[2025-06-24 15:56] LABS: INR 1.0 (0.83-1.09); PROTHROMBIN TIME (PATIENT) 11.0 SEC (9.7-13.0)
[2025-06-24 15:58] LABS: ACTIVATED PTT 33.2 SECONDS (25.2-36.5)
[2025-06-24 16:05] LABS: GLUCOSE,RANDOM 96.0 mg/dL (74-106); TOT PROT 6.4 g/dl (6.4-8.2)
[2025-06-24 16:06] LABS: CO2 30.0 mmol/L (21-32)
[2025-06-24 16:08] LABS: ALK PHOS 98.0 U/L (40-150)
[2025-06-24 16:11] LABS: CREATININE 0.94 mg/dL (0.55-1.3); SGOT/AST 28.0 U/L (5-34); SGPT/ALT 34.0 U/L (0-55)
[2025-06-24 20:47] VITALS: BP 124/71; PULSE 61
== END 2025-06-24 20:48 | disposition home or self-care (01) ==
LOC: JER 14:08
PROC: 3E033NZ Introduction of Analgesics, Hypnotics, Sedatives into Peripheral Vein, Percutaneous Approach (ICD-10-PCS; principal; 2025-06-24)
DX: R10.12 Left upper quadrant pain (principal); R10.32 Left lower quadrant pain
CPT/HCPCS: 36415; 71045-TC-FY; 74177-TC; 80053; 81003; 83690; 83735; 85025; 85610; 85730; 86850; 86900; 86901; 87086; 99285-25; Q9967